=== PATIENT | female | born 1990 | race Caucasian/White ===

== ENCOUNTER 2024-12-27 11:51 | Emergency (ER) | payer OTHER, MEDICAID ==
[~2024-12-27] VITALS: Ht 165.1 cm; Wt 89.7 kg
[2024-12-27] MEDS: FLUORESCEIN OPHTH 1MG STRIP OS ONE (12:40)
[2024-12-27] MEDS: PROPARACAINE 0.5% OPHTH SOL 15ML OS ONE (12:40)
[2024-12-27 13:11] VITALS: BP 136/81; TEMP 97.6; O2SAT 98
[2024-12-27] MEDS: ERYTHROMYCIN OPHTH OINT OS ONE (13:11)
== END 2024-12-27 13:15 | disposition home or self-care (01) ==
LOC: M ED 11:51
DX: S05.02XA Injury of conjunctiva and corneal abrasion without foreign body, left eye, initial encounter (principal); W22.8XXA Striking against or struck by other objects, initial encounter; Y92.9 Unspecified place or not applicable; Y93.89 Activity, other specified; Y99.9 Unspecified external cause status